=== PATIENT | male | born 1950 | race Caucasian/White ===

== ENCOUNTER 2020-05-23 10:02 | Emergency (ER) | payer MEDICARE, OTHER ==
[2020-05-23 10:19] VITALS: BP 111/74; PULSE 76
--- NOTE | 2020-05-23 12:08 | EDM.PDOC ---
ED HPI GENERAL MEDICAL PROBLEM - General Chief Complaint: Skin Complaint Stated Complaint: NEEDLE STUCK IN R HIP Time Seen by Provider: 05/23/20 11:06 Source of Information: Reports: Patient History Limitations: Reports: No Limitations - History of Present Illness INITIAL COMMENTS - FREE TEXT/NARRATIVE: Patient is a 69-year-old male who presents to the emergency department with complaints of a possible needle broken off in his right hip. He states that on Tuesday, his gave him an injection of dexamethasone for his chronic nausea and vomiting. He states that she thinks the needle broke off inside. He asked her if it could have fallen on the floor and she said she did not think it did. He is not having any pain to the area. - Related Data Allergies Allergy/AdvReac Type Severity Reaction Status Date / Time codeine AdvReac Nausea and Verified 05/23/20 10:19 Vomiting oxycodone [From Percocet] AdvReac Nausea and Verified 05/23/20 10:19 Vomiting propoxyphene AdvReac Nausea and Verified 05/23/20 10:19 [From Darvocet-N 100] Vomiting Home Meds: Home Meds Hydrocortisone 5 mg PO ACLUNCH 07/24/14 [History] Dexamethasone 4 mg IM DAILY PRN 07/03/16 [History] Ondansetron [Zofran ODT] 4 mg PO Q8H PRN 07/03/16 [History] Esomeprazole [NexIUM] 40 mg PO DAILY 11/04/16 [History] Pravastatin Sodium [Pravastatin (Pravachol)] 40 mg PO DAILY 11/04/16 [History] Propranolol [Inderal] 10 mg PO BID 11/04/16 [History] Sucralfate [Carafate] 1 gm PO QIDACANDBED 30 Days cup 11/05/16 [Rx] Hydrocortisone 20 mg PO DAILY #60 tablet 11/06/16 [Rx] Metoclopramide HCl [Reglan] 5 mg PO QID #120 tablet 11/17/16 [Rx] Ranitidine HCl [Zantac] 150 mg PO BID #60 tablet 11/17/16 [Rx] Past Medical History HEENT History: Reports: Impaired Vision Other HEENT History: wears glasses Cardiovascular History: Reports: CAD, Other (See Below) Other Cardiovascular History: ptca Gastrointestinal History: Reports: Gastritis, GERD Other Gastrointestinal History: On chronic Nexium and Carafate, also has gastroparesis, has been on Reglan chronically 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 Hematologic History: Reports: Anesthesia Reaction - Infectious Disease History Infectious Disease History: Reports: Chicken Pox, Influenza, Measles, Other (See Below) Other Infectious Disease History: Klebsiella sepsis of uncertain etiology - Past Surgical History Cardiovascular Surgical History: Reports: Percutaneous Transluminal Angioplasty GI Surgical History: Reports: Colonoscopy, EGD, ERCP, Hernia Repair/Other, Marybel Fundoplication, Other (See Below) Neurological Surgical History: Reports: None Musculoskeletal Surgical History: Reports: Shoulder Surgery Social & Family History - Family History Family Medical History: Noncontributory Cardiac: Reports: Bypass - Tobacco Use Smoking Status *Q: Never Smoker - Caffeine Use Caffeine Use: Reports: Soda Other Caffeine Use: 2 bottles of Mountain Dew daily, 24 ounce - Recreational Drug Use Recreational Drug Use: No - Living Situation & Occupation Living situation: Reports: Occupation: Employed ED ROS GENERAL - Review of Systems Review Of Systems: Comprehensive ROS is negative, except as noted in HPI. ED EXAM, SKIN/RASH Exam: See Below Exam Limited By: No Limitations General Appearance: Alert, WD/WN, No Apparent Distress Respiratory/Chest: No Respiratory Distress, Lungs Clear, Normal Breath Sounds, No Accessory Muscle Use, Chest Non-Tender Cardiovascular: Normal Peripheral Pulses, Regular Rate, Rhythm, No Edema, No Gallop, No JVD, No Murmur, No Rub Neurological: Alert, Oriented, CN II-XII Intact, Normal Cognition, Normal Gait, Normal Reflexes, No Motor/Sensory Deficits Skin: Warm, Dry, Intact, Normal Color, No Rash, Other (No tenderness to palpation over area of the injection site. No redness. Unable to localize injection site.) Associated features: No: Warmth, Tenderness, Swelling, Induration Course - Vital Signs Last Recorded V/S: Last Vital Signs Temp 97.1 F 05/23/20 10:14 Pulse 76 05/23/20 10:14 Resp 16 05/23/20 10:14 BP 111/74 05/23/20 10:14 Pulse Ox 98 05/23/20 10:14 - Orders/Labs/Meds Orders: Active Orders 24 hr Category Date Time Status Hip Min 2V or 3V Rt [CR] Stat Exams 05/23/20 11:34 Taken - Re-Assessments/Exams Free Text/Narrative Re-Assessment/Exam: 05/23/20 12:04 On exam, there is no tenderness to palpation throughout the entire area of the injection site. There is no redness. There is no horacio where the injection would have been to localize the site. X-ray was completed and no needle was visualized. Discussed with patient that there is no evidence to suggest that there is a needle. If he should experience symptoms such as pain, redness, or swelling, would recommend that he return or follow-up with his primary care provider. He is in agreement with this plan. Departure - Departure Time of Disposition: 12:06 Disposition: Home, Self-Care 01 Condition: Good Clinical Impression: Needlestick injury due to hypodermic needle - Discharge Information *PRESCRIPTION DRUG MONITORING PROGRAM REVIEWED*: No *COPY OF PRESCRIPTION DRUG MONITORING REPORT IN PATIENT MICHEL: No Instructions: Needlestick and Sharps Injury, [id number] Referrals: Shellie Mccoy MD [Primary Care Provider] - Forms: ED Department Discharge Additional Instructions: You were seen in the emergency department with concern that there is a broken needle in your right hip. On exam, you have no tenderness over the area of the injection. X-rays were taken and there was no needle visualized. I recommend that you continue to monitor the area. If you should experience any pain or redness to the area, it is recommended that you follow-up with your primary care provider or return to the emergency department. Sepsis Event Note (ED) - Evaluation Sepsis Screening Result: No Definite Risk - Focused Exam Vital Signs: Vital Signs Temp Pulse Resp BP Pulse Ox 05/23/20 10:14 97.1 F 76 16 111/74 98 - My Orders Last 24 Hours: My Active Orders 05/23/20 11:34 Hip Min 2V or 3V Rt [CR] Stat - Assessment/Plan Last 24 Hours: My Active Orders 05/23/20 11:34 Hip Min 2V or 3V Rt [CR] Stat
--- NOTE | 2020-05-24 08:53 | CR ---
Right hip: AP and crosstable lateral views of the right hip were obtained. Comparison: No prior right hip study. Findings: No radiopaque foreign object is appreciated. Soft tissue calcifications are noted anteriorly believed to be incidental. Phleboliths are seen within the pelvis. Joint space narrowing are noted within the right hip. Slight osteopenia is also present. Impression: 1. No discrete opaque foreign body is seen. 2. Degenerative change and other findings as described above. Diagnostic code #2 This report was dictated in MDT
== END 2020-05-23 12:30 | disposition home or self-care (01) ==
LOC: JD.ED 10:02
DX: S79.811A Other specified injuries of right hip, initial encounter (principal); W46.0XXA Contact with hypodermic needle, initial encounter; Z88.5 Allergy status to narcotic agent; Z88.8 Allergy status to other drugs, medicaments and biological substances; Z79.899 Other long term (current) drug therapy; K21.9 Gastro-esophageal reflux disease without esophagitis
CPT/HCPCS: 73502-26-RT; 73502-RT; 99282; 99283-25

== ENCOUNTER 2020-12-17 06:52 | Day surgery (SDC) | payer MEDICARE, OTHER ==
[~2020-12-17 06:52] MED LIST: Lactated Ringers 1,000 ML IV SCH; Lidocaine 1%/Sod Bicarbonate in NS 8.4% 1 ML Syringe IDERM PRN; Sodium Chloride 0.9% 10 ML Syringe FLUSH PRN
[2020-12-17] MEDS ORDERED: Methylene Blue 50 MG/10 ML Ampule ONE (06:59)
[2020-12-17] MEDS ORDERED: Scopolamine 1.5 MG Transdermal Patch TOP SCH (07:00)
[2020-12-17] MEDS ORDERED: Dextrose 5% in Water 100 ML ONE (07:00)
--- NOTE | 2020-12-17 07:21 | PCM.PREANE ---
Preanesthetic Assessment - Anesthesia/Transfusion/Family Hx Anesthesia History: Prior Anesthesia Reaction (nausea) Family History of Anesthesia Reaction: No Transfusion History: No Prior Transfusion(s) - Review of Systems General: No Symptoms Pulmonary: No Symptoms Cardiovascular: No Symptoms, Other (HTN) Gastrointestinal: No Symptoms Neurological: No Symptoms Other: Reports: Anxiety - Physical Assessment NPO Status Date: 12/16/20 NPO Status Time: 17:00 Height: 1.78 m Weight: 74 kg ASA Class: 3 Mental Status: Alert & Oriented x3 Airway Class: Mallampati = 2 Dentition: Reports: Surfside(s), Caries Thyro-Mental Finger Breadths: 3 Mouth Opening Finger Breadths: 2 ROM/Head Extension: Full Lungs: Clear to Auscultation, Normal Respiratory Effort Cardiovascular: Regular Rate, Regular Rhythm - Allergies Allergies/Adverse Reactions: Allergies Allergy/AdvReac Type Severity Reaction Status Date / Time codeine AdvReac Nausea and Verified 12/16/20 12:50 Vomiting oxycodone [From Percocet] AdvReac Nausea and Verified 12/16/20 12:50 Vomiting propoxyphene AdvReac Nausea and Verified 12/16/20 12:50 [From Darvocet-N 100] Vomiting - Blood Product(s) Available: None - Anesthesia Plan Pre-Op Medication Ordered: Beta Angel Beta Angel: Propranolol Med Last Dose Date: 12/17/20 Med Last Dose Time: 06:30 - Acknowledgements Anesthesia Type Planned: General Anesthesia Pt an Appropriate Candidate for the Planned Anesthesia: Yes Alternatives and Risks of Anesthesia Discussed w Pt/Guardian: Yes Pt/Guardian Understands and Agrees with Anesthesia Plan: Yes PreAnesthesia Questionnaire HEENT History: Reports: Impaired Vision, Otitis Media Other HEENT History: impacted cerumen, hearing loss, tinnitis, otitis media, wears glasses, has hearing aids Cardiovascular History: Reports: CAD, High Cholesterol, Hypertension, Other (See Below) Other Cardiovascular History: prolonged QT, bradycardia, angioplasty Respiratory History: Reports: Other (See Below) Other Respiratory History: klebsiella pneumonae Gastrointestinal History: Reports: Cholelithiasis, Chronic Diarrhea, Gastritis, GERD Other Gastrointestinal History: abdominal pain, ulcer Genitourinary History: Reports: Other (See Below) Other Genitourinary History: prostatism, renal insufficiency, kidney stones, frequency, UTI [employer] History: Reports: None Musculoskeletal History: Reports: Osteoporosis, Other (See Below) Other Musculoskeletal History: osteopenia, lumbar paraspinal pain, left shoulder pain Neurological History: Reports: Other (See Below) Other Neuro History: essential tremor Psychiatric History: Reports: Anxiety, Depression Endocrine/Metabolic History: Reports: [place]'s Disease, Vitamin D Deficiency Hematologic History: Reports: Anesthesia Reaction Immunologic History: Reports: None Oncologic (Cancer) History: Reports: None Dermatologic History: Reports: Other (See Below) Other Dermatologic History: skin lesion to left arm, right ear - Infectious Disease History Infectious Disease History: Reports: None Other Infectious Disease History: Klebsiella sepsis of uncertain etiology - Past Surgical History Head Surgeries/Procedures: Reports: None HEENT Surgical History: Reports: None, Cataract Surgery Cardiovascular Surgical History: Reports: Percutaneous Transluminal Angioplasty Respiratory Surgical History: Reports: None GI Surgical History: Reports: Colonoscopy, EGD, ERCP, Hernia Repair/Other, Marybel Fundoplication, Other (See Below) Other GI Surgeries/Procedures: Patient reports Marybel fundoplication x 2 and Hiatal hernia repair x 1, was supposed to have a 4th operation but elected to take meds instead Female Surgical History: Reports: None Male Surgical History: Reports: None Endocrine Surgical History: Reports: None Neurological Surgical History: Reports: None Musculoskeletal Surgical History: Reports: Shoulder Surgery Other Musculoskeletal Surgeries/Procedures:: bilat rotator cuff repair. Oncologic Surgical History: Reports: None Dermatological Surgical History: Reports: None - SUBSTANCE USE Tobacco Use Status *Q: Former Tobacco User Tobacco Use Within Last Twelve Months: No Second Hand Smoke Exposure: No Days Per Week of Alcohol Use: 0 Number of Drinks Per Day: 0 Total Drinks Per Week: 0 Recreational Drug Use History: No - HOME MEDS Home Medications: Home Meds Dexamethasone 4 mg IM DAILY PRN 07/03/16 [History] Ondansetron [Zofran ODT] 4 mg PO Q8H PRN 07/03/16 [History] Pravastatin Sodium [Pravastatin (Pravachol)] 40 mg PO DAILY 11/04/16 [History] Propranolol [Inderal] 10 mg PO QID 11/04/16 [History] Aspirin 81 mg PO DAILY 12/16/20 [History] Carbamide Peroxide [Debrox 6.5% Otic Soln] 1 drop EARBOTH ASDIRECTED PRN 12/16/20 [History] Cholecalciferol (Vitamin D3) [Vitamin D3] 5,000 unit PO DAILY 12/16/20 [History] Domperidone 10 mg PO QID 12/16/20 [History] Famotidine [Pepcid] 40 mg PO DAILY 12/16/20 [History] Prochlorperazine [Compazine] 5 mg PO BID 12/16/20 [History] RABEprazole Sodium [Aciphex] 20 mg PO BID 12/16/20 [History] Triamcinolone Acetonide [Triamcinolone Acetonide 0.1% Crm] 1 dose TOP BID 12/16/20 [History] - CURRENT (IN HOUSE) MEDS Current Meds: Current Medications Lactated Ringer's (Ringers, Lactated) 1,000 mls @ 125 mls/hr IV ASDIRECTED FINN Stop: 12/17/20 23:00 Lidocaine/Sodium Bicarbonate (Buffered Lidocaine 1% In Ns 8.4%) 0.25 ml IDERM ONETIME PRN PRN Reason: Prior to IV Start Stop: 12/17/20 18:00 Scopolamine (Transderm-Scop) 1.5 mg TOP ONETIME FINN Stop: 12/17/20 16:00 Sodium Chloride (Saline Flush) 10 ml FLUSH ASDIRECTED PRN PRN Reason: Keep Vein Open Stop: 12/17/20 18:00 Discontinued Medications Bupivacaine HCl/Epinephrine Bitart (Marcaine 0.5%/Epinephrine 1:200,000) Confirm Administered Dose 50 ml .ROUTE .STK-MED ONE Stop: 12/17/20 07:00 Dextrose/Water (Dextrose 5% In Water) Confirm Administered Dose 100 mls @ as directed .ROUTE .STK-MED ONE Stop: 12/17/20 07:01 Methylene Blue (Provayblue) Confirm Administered Dose 50 mg .ROUTE .STK-MED ONE Stop: 12/17/20 07:00
[2020-12-17] MEDS ORDERED: fentaNYL 250 MCG/5 ML SDV ONE (07:26)
[2020-12-17] MEDS ORDERED: Ondansetron 4 MG/2 ML SDV ONE (07:26)
[2020-12-17] MEDS ORDERED: Midazolam 1 MG/ML 2 ML SDV ONE (07:26)
[2020-12-17] MEDS ORDERED: Propofol 200 MG/20 ML SDV ONE ×6 (07:26→10:02)
[2020-12-17] MEDS ORDERED: Lidocaine 1% 4 ML ONE (07:27)
[2020-12-17] MEDS ORDERED: ceFAZolin 1 GM Vial ONE (08:15)
[2020-12-17] MEDS: Bupivacaine 0.5%/EPINEPHrine 1:200,000 50 ML MDV ONE ×3 (08:15→10:02)
[2020-12-17] MEDS ORDERED: Lactated Ringers 1,000 ML ONE (09:44)
[2020-12-17] MEDS ORDERED: Dexamethasone 4 MG/ML 5 ML MDV ONE (10:30)
[2020-12-17] MEDS ORDERED: Ketorolac 30 MG/ML SDV ONE (10:31)
--- NOTE | 2020-12-17 10:33 | NM ---
Lymphatic injection: 0.95 mCi of technetium 99m sulfur colloid was injected by Dr. Rice in surgery.
[2020-12-17] MEDS ORDERED: fentaNYL 100 MCG/2 ML SDV IVPUSH PRN (11:05)
--- NOTE | 2020-12-17 11:06 | PCM.POSTAN ---
POST ANESTHESIA ASSESSMENT - MENTAL STATUS Mental Status: Alert, Oriented - VITAL SIGNS Vital Signs: Last Vital Signs Temp 36.1 C 12/17/20 06:55 Pulse 63 12/17/20 06:55 Resp 16 12/17/20 06:55 BP 128/80 12/17/20 06:55 Pulse Ox 98 12/17/20 06:55 - RESPIRATORY Respiratory Status: Respiratory Rate WNL, Airway Patent, O2 Saturation Stable, Supplemental Oxygen - CARDIOVASCULAR CV Status: Pulse Rate WNL, Blood Pressure Stable - GASTROINTESTINAL GI Status: No Symptoms - PAIN Pain Score: 0 - POST OP HYDRATION Hydration Status: Adequate & Stable - OBSERVATIONS Free Text/Narrative:: NO ANESTHESIA COMPLICATIONS NOTED
--- NOTE | 2020-12-17 11:23 | PCM.PRNOTE ---
- Free Text/Narrative Note: Date: 12/17/2020 Operation: wide local excision, left forearm. 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 Elliptical excision of biopsy site on arm with circumferential 2 cm margin. Hot and blue axillary node identified, with tissue bed reading less than 10% after excision. Detailed Report: The patient was taken to the OR and placed supine. LMA anesthesia was provided. Time out performed. Markings of tumor sites were visible. Lymphazurin blue and radiotracer were injected intradermally at the prior biopsy site of the left forearm. The right chest was prepped and draped in sterile fashion. A transversely oriented elliptical incision encompassing the gross margins of the basal cell lesion was made with the knife after injection of 15 cc 0.5% marcaine with epinephrine. The lesion measured about 1 cm in diameter, and ellipse measured about 1.5 x 3 cm. The incision was taken down to the level of subcutaneous fat. The ellipse was excised with monopolar energy and oriented with short stitch-superior and long stitch-lateral. Frozen section result confirmed close margin of < 1 mm at superomedial aspect. The wound was closed with interrupted deep dermal vicryl sutures, running subcuticular vicryl suture, and dressed with dermabond. Next, the Drimmi counter was used to localize the sentinel node in the left axilla. 5 cc local anesthetic was injected intradermally prior to incision. A transverse incision was made measuring 4 cm, just posterior to the edge of the pectoralis major. Dissection continued down with use of the counter as a guide, and a hot, blue lymph node was visualized. Count was as high as 260 cps. Monopolar energy was used to excise the node and surrounding fatty tissue. Ex vivo, count was 260, with tissue bed count < 10 cps. The wound was closed in layers using vicryl suture and dressed with dermabond. Next, the left arm biopsy site was addressed. The prior excisional biopsy had removed all malignant melanoma with negative margin. A 2 cm circumferential margin was marked around the prior incision, and a longitudinally oriented ellipse with ratio 2.5:1 incision was made through skin and subcutaneous fat. The ellipse was removed, and measured about 4 x 10 cm. Marking stitches were placed for orientation; short marking proximal and long marking lateral. The wound was closed in layers similar to other incision sites. The central area, which was closed under some tension, was reinforced with two 2-0 nylon horizontal mattress sutures. The arm wound was dressed with dry gauze and tape. Other incisions were dressed with dermabond. The patient tolerated the procedure well.
--- NOTE | 2020-12-17 11:55 | PCM48HPAN ---
Post Anesthesia Note - EVALUATION WITHIN 48HRS OF ANESTHETIC Vital Signs in Normal Range: Yes Patient Participated in Evaluation: Yes Respiratory Function Stable: Yes Airway Patent: Yes Cardiovascular Function Stable: Yes Hydration Status Stable: Yes Pain Control Satisfactory: Yes Nausea and Vomiting Control Satisfactory: Yes Mental Status Recovered: Yes Vital Signs: Last Vital Signs Temp 36.1 C 12/17/20 06:55 Pulse 63 12/17/20 06:55 Resp 18 12/17/20 11:50 BP 133/90 12/17/20 11:50 Pulse Ox 97 12/17/20 11:50 - COMMENTS/OBSERVATIONS Free Text/Narrative:: no anesthesia complications noted
[2020-12-17] MEDS ORDERED: Meperidine 50 MG/ML Vial IVPUSH ONE (12:00)
[2020-12-17 13:23] VITALS: BP 132/72; PULSE 82
== END 2020-12-17 13:00 | disposition home or self-care (01) ==
LOC: JD.SDS 06:52
PROVIDERS: ATTEND Surgery
DX: C44.519 Basal cell carcinoma of skin of other part of trunk (principal); C77.3 Secondary and unspecified malignant neoplasm of axilla and upper limb lymph nodes; I25.10 Atherosclerotic heart disease of native coronary artery without angina pectoris; E78.00 Pure hypercholesterolemia, unspecified; F17.210 Nicotine dependence, cigarettes, uncomplicated; I10 Essential (primary) hypertension; E55.9 Vitamin D deficiency, unspecified; Z88.5 Allergy status to narcotic agent; Z88.8 Allergy status to other drugs, medicaments and biological substances; Z79.82 Long term (current) use of aspirin; Z79.899 Other long term (current) drug therapy; Z98.890 Other specified postprocedural states
CPT/HCPCS: 11604; 11606; 38525; 38792; 88305; 88307; A9270; A9541; J0690; J1100; J1885; J2175; J2250; J2405; J2704; J3010; J3490; J7120; 00400

== ENCOUNTER → 2023-04-07 | Day surgery (SDC) | payer MEDICARE, OTHER ==
[~2023-04-07] MED LIST changes: +EPINEPHrine 1 MG/ML SDV ONE; +Lidocaine 1% 4 ML ONE; -Lidocaine 1%/Sod Bicarbonate in NS 8.4% 1 ML Syringe IDERM PRN; +Propofol 200 MG/20 ML SDV ONE; +ePHEDrine 50 MG/ML SDV ONE; +fentaNYL 100 MCG/2 ML SDV ONE
[2023-04-07 09:11] LABS: BASOPHILS ABSOLUTE AUTO 0.04 K/mm3 (0.01-0.08); BASOPHILS PERCENT AUTO 0.9 % (0.1-1.2); EOSINOPHILS ABSOLUTE AUTO 0.18 K/mm3 (0.04-0.54); HEMATOCRIT 34.2 % (40.1-51.0); LYMPHOCYTES ABSOLUTE AUTO 0.88 K/mm3 (1.32-3.57); LYMPHOCYTES PERCENT AUTO 19.6 % (21.8-53.1); MEAN CORPUSCULAR HEMOGLOBIN 29.6 pg (25.7-32.2); MEAN CORPUSCULAR HGB CONC 30.4 g/dl (32.2-35.5); MEAN PLATELET VOLUME 9.2 fl (9.4-12.3); MONOCYTES ABSOLUTE AUTO 0.54 K/mm3 (0.30-0.82); NEUTROPHILS ABSOLUTE AUTO 2.86 K/mm3 (1.78-5.38); NEUTROPHILS PERCENT AUTO 63.5 % (34.0-67.9); PLATELET COUNT,PLT 263 K/mm3 (163-337); RED BLOOD CELL COUNT 3.51 M/mm3 (4.63-6.08)
[2023-04-07 09:17] LABS: HEMOGLOBIN 10.4 gm/dl (13.7-17.5); MEAN CORPUSCULAR VOLUME 97.4 fl (79.0-92.2)
[2023-04-07 09:37] LABS: ANION GAP 13.5 (5-15); POTASSIUM,K 3.5 mEq/L (3.5-5.1)
[2023-04-07 13:25] VITALS: BP 105/83; PULSE 98
== END | disposition home or self-care (01) ==
LOC: JD.SDS 08:45
PROVIDERS: ATTEND Surgery
DX: K29.50 Unspecified chronic gastritis without bleeding (principal); D12.3 Benign neoplasm of transverse colon; D12.2 Benign neoplasm of ascending colon; K44.9 Diaphragmatic hernia without obstruction or gangrene; K57.30 Diverticulosis of large intestine without perforation or abscess without bleeding; K64.4 Residual hemorrhoidal skin tags; K64.8 Other hemorrhoids; D64.9 Anemia, unspecified; K21.9 Gastro-esophageal reflux disease without esophagitis; F51.02 Adjustment insomnia; F41.9 Anxiety disorder, unspecified; M81.0 Age-related osteoporosis without current pathological fracture; I25.10 Atherosclerotic heart disease of native coronary artery without angina pectoris; E55.9 Vitamin D deficiency, unspecified; F32.A Depression, unspecified; E78.00 Pure hypercholesterolemia, unspecified; I10 Essential (primary) hypertension; Z88.5 Allergy status to narcotic agent; Z88.8 Allergy status to other drugs, medicaments and biological substances; Z79.899 Other long term (current) drug therapy; Z98.890 Other specified postprocedural states; Z87.891 Personal history of nicotine dependence
CPT/HCPCS: 36415; 43239; 45380; 45385; 80051; 85025; J1642; J2704; J3010; J7120; 00813; J0171; J3490